=== PATIENT | female | born 1950 | race Caucasian/White ===

== ENCOUNTER 2020-02-26 19:23 | Emergency (ER) | payer MEDICARE ==
[2020-02-26] MEDS ORDERED: MORPHINE SULFATE 4 MG/ML SYRINGE IV STA (19:36)
[2020-02-26] MEDS ORDERED: SODIUM CHLORIDE 0.9% 1,000 ML IV STA (19:36)
--- NOTE | 2020-02-26 19:38 | ED ---
Abdominal Pain HPI - General Stated Complaint: Sent by PCP - Kidney Stones Time Seen by Provider: 02/26/20 19:35 Source: RN notes reviewed, old records reviewed Limitations: no limitations - History of Present Illness Initial Comments: This is a 69-year-old female DF for evaluation patient with flank pain today severe flank pain blood in the urine. Patient sent DF for evaluation of significant kidney stone. Otherwise no recent travel history or sick contacts MD Complaint: abdominal pain, flank pain ((Left) Location: LLQ, L flank Radiation: L flank Migration to: suprapubic Severity: severe Severity scale (1-10): 10 Quality: aching, sharp Consistency: constant Improves With: nothing Worsens With: nothing Associated Symptoms: nausea - Related Data Home Medications Medication Instructions Recorded Confirmed Acetaminophen Tab [Tylenol] 500 mg PO HS 02/26/20 02/26/20 Allergies Allergy/AdvReac Type Severity Reaction Status Date / Time No Known Allergies Allergy Verified 02/26/20 19:46 Review of Systems ROS Statement: Those systems with pertinent positive or pertinent negative responses have been documented in the HPI. ROS Other: All systems not noted in ROS Statement are negative. General Exam General appearance: alert, in no apparent distress Head exam: Present: atraumatic, normocephalic, normal inspection Eye exam: Present: normal appearance, PERRL, EOMI. Absent: scleral icterus, conjunctival injection, periorbital swelling ENT exam: Present: normal exam, mucous membranes moist Neck exam: Present: normal inspection. Absent: tenderness, meningismus, lymphadenopathy Respiratory exam: Present: normal lung sounds bilaterally. Absent: respiratory distress, wheezes, rales, rhonchi, stridor Cardiovascular Exam: Present: regular rate, normal rhythm, normal heart sounds. Absent: systolic murmur, diastolic murmur, rubs, gallop, clicks GI/Abdominal exam: Present: soft, normal bowel sounds. Absent: distended, tenderness, guarding, rebound, rigid Extremities exam: Present: normal inspection, full ROM, normal capillary refill. Absent: tenderness, pedal edema, joint swelling, calf tenderness Back exam: Present: normal inspection Neurological exam: Present: alert, oriented X3, CN II-XII intact Psychiatric exam: Present: normal affect, normal mood Skin exam: Present: warm, dry, intact, normal color. Absent: rash Course Vital Signs 02/26/20 19:36 Temperature 98.5 F Pulse Rate 85 Respiratory 19 Rate Blood Pressure 214/105 O2 Sat by Pulse 96 Oximetry - Reevaluation(s) Reevaluation #1: 02/26/20 20:50 Medical record is reviewed Reevaluation #2: 02/26/20 20:50 Patient has adequate current pain control Reevaluation #3: 02/26/20 20:50 Spoke with patient regarding findings need to follow up with urology Medical Decision Making - Medical Decision Making 69 female DF for evaluation patient Dese for evaluation of abdominal pain with kidney stone. 9 mm kidney stone but now patient has good pain control follow-up with urology on Saturday - Lab Data Result diagrams: 02/26/20 20:09 02/26/20 20:09 Lab Results 02/26/20 02/26/20 Range/Units 20: 20:09 WBC 11.7 H (3.8-10.6) k/uL RBC 4.91 (3.80-5.40) m/uL Hgb 14.1 (11.4-16.0) gm/dL Hct 42.4 (34.0-46.0) % MCV 86.2 (80.0-100.0) fL MCH 28.6 (25.0-35.0) pg MCHC 33.2 (31.0-37.0) g/dL RDW 12.6 (11.5-15.5) % Plt Count 236 (150-450) k/uL Neutrophils % 83 % Lymphocytes % 13 % Monocytes % 3 % Eosinophils % 1 % Basophils % 0 % Neutrophils # 9.6 H (1.3-7.7) k/uL Lymphocytes # 1.5 (1.0-4.8) k/uL Monocytes # 0.4 (0-1.0) k/uL Eosinophils # 0.1 (0-0.7) k/uL Basophils # 0.0 (0-0.2) k/uL Sodium 140 (137-145) mmol/L Potassium 4.3 (3.5-5.1) mmol/L Chloride 106 (98-107) mmol/L Carbon Dioxide 25 (22-30) mmol/L Anion Gap 9 mmol/L BUN 17 (7-17) mg/dL Creatinine 0.91 (0.52-1.04) mg/dL Est GFR (CKD-EPI)AfAm 73 (>60 ml/min/1.73 sqM) Est GFR (CKD-EPI)NonAf 64 (>60 ml/min/1.73 sqM) Glucose 175 H (74-99) mg/dL Calcium 9.9 (8.4-10.2) mg/dL Total Bilirubin 0.6 (0.2-1.3) mg/dL AST 24 (14-36) U/L ALT 20 (4-34) U/L Alkaline Phosphatase 93 (38-126) U/L Creatine Kinase 74 (30-135) U/L Total Protein 7.2 (6.3-8.2) g/dL Albumin 4.6 (3.5-5.0) g/dL Amylase 50 (30-110) U/L Lipase 43 (23-300) U/L - Radiology Data Radiology results: report reviewed (CT head and pelvis positive for kidney stone), image reviewed Disposition Clinical Impression: Left ureteral stone Disposition: HOME SELF-CARE Condition: Good Instructions (If sedation given, give patient instructions): Kidney Stones (ED) Is patient prescribed a controlled substance at d/c from ED?: No Referrals: Tae Gastelum MD [STAFF PHYSICIAN] - 1-2 days
[2020-02-26 19:46] VITALS: PULSE 85
[2020-02-26 20:21] LABS: Basophils % (A) 0 %; Eosinophils # (A) 0.1 k/uL (0-0.7); Eosinophils % (A) 1 %; HCT 42.4 % (34.0-46.0); HGB 14.1 gm/dL (11.4-16.0); Lymphocytes # (A) 1.5 k/uL (1.0-4.8); Lymphocytes % (A) 13 %; MCH 28.6 pg (25.0-35.0); MCHC 33.2 g/dL (31.0-37.0); MCV 86.2 fL (80.0-100.0); Mean Platelet Volume 8.3; Monocytes # (A) 0.4 k/uL (0-1.0); Monocytes % (A) 3 %; Neutrophils # (A) 9.6 k/uL (1.3-7.7); Neutrophils % (A) 83 %; Platelet Count 236 k/uL (150-450); RBC 4.91 m/uL (3.80-5.40); RDW 12.6 % (11.5-15.5); WBC 11.7 k/uL (3.8-10.6)
[2020-02-26 20:25] LABS: Albumin 4.6 g/dL (3.5-5.0); Calcium 9.9 mg/dL (8.4-10.2); Potassium 4.3 mmol/L (3.5-5.1); Total Bilirubin 0.6 mg/dL (0.2-1.3); Total Protein 7.2 g/dL (6.3-8.2)
--- NOTE | 2020-02-26 20:32 | CT ---
EXAMINATION TYPE: CT abdomen pelvis wo con DATE OF EXAM: 02/26/2020 COMPARISON: None HISTORY: Pt sent from Urgent Care for renal stones. LT side pain CT DLP: 805.2 mGycm Automated exposure control for dose reduction was used. Images obtained from the diaphragm to the floor the pelvis with no contrast. There is some mild atelectasis at the lung bases. There is no pleural effusion. Heart is borderline e nlarged. There is no pericardial effusion. Liver gallbladder pancreas spleen stomach appear intact. The bile ducts are not dilated. There is no adrenal mass. Kidneys have normal size. There is left-sided hydronephrosis with 9 mm obst ructing calculus at the left proximal ureter. There is no retroperitoneal adenopathy. There is no sig n of obstruction on the right side. There is slight fullness of the right renal calyces that could re late to previous episode of obstruction. Bladder distends smoothly. Uterus is anteverted. There is left inguinal hernia that contains fat. The re is no free fluid in the pelvis. Lumbar vertebra have normal alignment. Disc spaces are fairly norm al. There is no compression fracture. The bony pelvis is intact. The hip joints are intact. There is bilateral hypertrophic acetabular spur formation. The appendix is posterior and lateral and appears normal. There is no mesenteric edema. There is no a scites or free air. There is no bowel obstruction. There are a few isolated colonic diverticula. IMPRESSION: Large obstructing calculus in the proximal left ureter. Left-sided hydronephrosis. Normal appendix.
[2020-02-26] MEDS ORDERED: IBUPROFEN 600 MG STARTER PACK 4 TAB BTL PO STA (20:48)
[2020-02-26] MEDS ORDERED: Acetaminophen-Codeine 300-30mg TAB PO STA (20:48)
[2020-02-26] MEDS ORDERED: ONDANSETRON ODT 4 MG TAB PO STA (20:48)
[2020-02-26] MEDS ORDERED: ACET/COD 300 MG/30 MG STARTER PACK 6 TAB BTL PO STA (20:48)
[2020-02-26] MEDS ORDERED: ONDANSETRON 4 MG ODT STARTER PACK 2 TAB BTL PO STA (20:48)
[2020-02-26] MEDS ORDERED: MORPHINE SULFATE 4 MG/ML SYRINGE IVP PRN (20:48)
[2020-02-26] MEDS ORDERED: KETOROLAC 15 MG/ML 1 ML VIAL IVP STA (20:48)
[2020-02-26 21:10] LABS: Amorphous Sediment,Urine Rare /hpf; Appearance,Urine Cloudy (Clear); Bacteria,Urine Occasional /hpf; Bilirubin,Urine Negative (Negative); Blood,Urine Small (Negative); Color,Urine Yellow; Glucose,Urine (UA) Trace (Negative); Hyaline Casts,Urine 169 /lpf (0-2); Ketones,Urine Trace (Negative); Leukocyte Esterase,Urine Negative (Negative); Mucus,Urine Many /hpf; Nitrite,Urine Negative (Negative); Protein,Urine 1+ (Negative); RBC,Urine 5 /hpf (0-5); Specific Gravity,Urine 1.026 (1.001-1.035); Squamous Epithelial Cell,Urine 2 /hpf (0-4); WBC,Urine 3 /hpf (0-5)
[2020-02-26 21:17] VITALS: BP 161/82; RESP 18; TEMP 98.4
== END 2020-02-26 21:16 | disposition home or self-care (01) ==
LOC: EC 19:23
DX: N20.2 Calculus of kidney with calculus of ureter (principal); Z79.899 Other long term (current) drug therapy
CPT/HCPCS: 36415; 80053; 82150; 82550; 83690; 85025; 81001; 74176; 99285; 96374; 96375; 96361; J2270; J1885; S0119

== ENCOUNTER 2020-03-09 18:30 | Inpatient (IN) | payer MEDICARE ==
[2020-03-09 18:37] LABS: Glucose,Whole Blood 365 mg/dL (75-99)
[2020-03-09 19:30] LABS: Basophils % (A) 0 %; Eosinophils # (A) 0.1 k/uL (0-0.7); Eosinophils % (A) 1 %; HCT 38.7 % (34.0-46.0); HGB 12.6 gm/dL (11.4-16.0); Lymphocytes # (A) 1.1 k/uL (1.0-4.8); Lymphocytes % (A) 8 %; MCH 28.4 pg (25.0-35.0); MCHC 32.5 g/dL (31.0-37.0); MCV 87.4 fL (80.0-100.0); Mean Platelet Volume 9.1; Monocytes # (A) 0.5 k/uL (0-1.0); Monocytes % (A) 3 %; Neutrophils # (A) 12.4 k/uL (1.3-7.7); Neutrophils % (A) 88 %; RBC 4.42 m/uL (3.80-5.40); RDW 13.4 % (11.5-15.5); WBC 14.2 k/uL (3.8-10.6)
[2020-03-09 19:39] LABS: Albumin 4.2 g/dL (3.5-5.0); Calcium 9.2 mg/dL (8.4-10.2); Magnesium 1.9 mg/dL (1.6-2.3); Platelet Count 115 k/uL (150-450); Potassium 4.1 mmol/L (3.5-5.1); Total Bilirubin 1.1 mg/dL (0.2-1.3); Total Protein 6.8 g/dL (6.3-8.2)
[2020-03-09 19:46] LABS: Appearance,Urine Cloudy (Clear); Bacteria,Urine Occasional /hpf; Bilirubin,Urine 1+ (Negative); Blood,Urine Large (Negative); Color,Urine Yellow; Glucose,Urine (UA) 4+ (Negative); Hyaline Casts,Urine 14 /lpf (0-2); INR 1.2 (<1.2); Ketones,Urine 1+ (Negative); Leukocyte Esterase,Urine Trace (Negative); Mucus,Urine Rare /hpf; Nitrite,Urine Negative (Negative); Protein,Urine 1+ (Negative); Prothrombin Time 12.2 sec (9.0-12.0); RBC,Urine 28 /hpf (0-5); Specific Gravity,Urine 1.025 (1.001-1.035); Squamous Epithelial Cell,Urine 23 /hpf (0-4); Urobilinogen,Urine <2.0 mg/dL (<2.0); WBC,Urine 9 /hpf (0-5)
[2020-03-09 19:47] LABS: Partial Thromboplastin Time 21.3 sec (22.0-30.0)
--- NOTE | 2020-03-09 20:48 | XR ---
EXAMINATION TYPE: XR chest 2V DATE OF EXAM: 03/09/2020 COMPARISON: NONE HISTORY: Shortness of breath. TECHNIQUE: Frontal and lateral views of the chest are obtained. FINDINGS: There is mild bibasilar atelectasis. No significant infiltrate pleural effusion, or pneumo thorax seen. The cardiac silhouette size is within normal limits. The osseous structures are intac t. IMPRESSION: No acute cardiopulmonary process.
[2020-03-09] MEDS ORDERED: SODIUM CHLORIDE 0.9% 1,000 ML IV ONE (20:59)
[2020-03-09] MEDS ORDERED: cefTRIAXone IN SWFI 1,000 MG/10 ML SYRINGE IVP STA (20:59)
--- NOTE | 2020-03-09 21:07 | CT ---
EXAMINATION TYPE: CT brain cspine wo con DATE OF EXAM: 03/09/2020 COMPARISON: None available. HISTORY: recent fall and surgery CT DLP: 2282 mGycm Automated exposure control for dose reduction was used. TECHNIQUE: CT scan of the head and cervical spine are performed without contrast. FINDINGS: There is no acute intracranial hemorrhage, mass effect, or midline shift identified. The ventricles and sulci are within normal limits in size. The globes are intact and the visualized sin uses are clear. Cervical spine is visualized in its entirety from C1 through upper thoracic levels and demonstrates s atisfactory alignment without evidence of acute fracture or dislocation. Prevertebral soft tissue ap pears within normal limits. The C1-C2 articulation is unremarkable. There is moderate to severe cer vical spondylosis. IMPRESSION: 1. There is no acute fracture or dislocation evident in the cervical spine. 2. No acute intracranial hemorrhage, mass effect, or midline shift is seen.
[2020-03-09] MEDS: SODIUM CHLORIDE 0.9% 1,000 ML IV SCH (21:25)
--- NOTE | 2020-03-09 21:41 | ED ---
General Adult HPI - General Chief complaint: Recheck/Abnormal Lab/Rx Stated complaint: elevated blood sugar Source: patient Mode of arrival: wheelchair Limitations: no limitations - History of Present Illness Initial comments: The patient is a 69 year old female who presents to the emergency department for generalized weakness, hyperglycemia and nausea. Patient reports that she had outpatient surgery by Dr. Lua on Saturday. She had a 9 mm obstructing left proximal ureter stone which was removed. Patient was discharged home on Saturday after her procedure. States that she was so weak that she sustained a fall. She fell hit her head and was unconscious for approximately 5 minutes. States that throughout the week she has been nauseated, vomiting and in pain. She has left-sided flank pain. Admits to extreme fatigue. She has been unable to eat or drink. She has not taken any of her insulin as she has been unable to hold down any of her foods and has not been eating. She denies any chest pain. No shortness of breath. No changes in her bowel habits. Does admit that her urine has been cloudy. No other alleviating, precipitating or modifying factors - Related Data Home Medications Medication Instructions Recorded Confirmed Acetaminophen Tab [Tylenol] 1,000 mg PO Q6H PRN 02/26/20 03/09/20 Atorvastatin Calcium [Lipitor] 10 mg PO HS 03/09/20 03/09/20 Omeprazole 20 mg PO DAILY 03/09/20 03/09/20 glipiZIDE [Glucotrol] 10 mg PO AC-SUPPER 03/09/20 03/09/20 glipiZIDE [Glucotrol] 20 mg PO AC-BRKFST 03/09/20 03/09/20 metFORMIN HCL [Glucophage Xr] 1,500 mg PO W/SUPPER 03/09/20 03/09/20 sitaGLIPtin [Januvia] 25 mg PO DAILY 03/09/20 03/09/20 Allergies Allergy/AdvReac Type Severity Reaction Status Date / Time No Known Allergies Allergy Verified 03/09/20 20:03 Review of Systems ROS Statement: Those systems with pertinent positive or pertinent negative responses have been documented in the HPI. ROS Other: All systems not noted in ROS Statement are negative. Past Medical History Past Medical History: Diabetes Mellitus, Hypertension Additional Past Medical History / Comment(s): Type 2 diabetic History of Any Multi-Drug Resistant Organisms: None Reported Past Surgical History: Tubal Ligation Past Psychological History: No Psychological Hx Reported Smoking Status: Never smoker Past Alcohol Use History: None Reported Past Drug Use History: None Reported General Exam Limitations: no limitations General appearance: alert, other (appears fatigued) Eye exam: Present: normal appearance, PERRL, EOMI. Absent: scleral icterus, conjunctival injection, periorbital swelling ENT exam: Present: mucous membranes dry Respiratory exam: Present: normal lung sounds bilaterally. Absent: respiratory distress, wheezes, rales, rhonchi, stridor Cardiovascular Exam: Present: regular rate, normal rhythm, normal heart sounds. Absent: systolic murmur, diastolic murmur, rubs, gallop, clicks GI/Abdominal exam: Present: soft. Absent: guarding, rebound, rigid Back exam: Present: CVA tenderness (L) Neurological exam: Present: alert, oriented X3 Skin exam: Present: warm, pallor Course Vital Signs 03/09/20 03/09/20 03/09/20 18:32 20:30 21:00 Temperature 97.8 F Pulse Rate 87 84 84 Respiratory 16 16 16 Rate Blood Pressure 132/74 134/79 134/79 O2 Sat by Pulse 95 93 L 91 L Oximetry 03/09/20 03/09/20 03/09/20 21:30 22:00 22:30 Temperature Pulse Rate 85 85 85 Respiratory 20 20 Rate Blood Pressure 144/88 135/82 148/89 O2 Sat by Pulse 91 L 92 L 92 L Oximetry 03/09/20 23:00 Temperature Pulse Rate 87 Respiratory Rate Blood Pressure 147/91 O2 Sat by Pulse 91 L Oximetry EKG Findings - EKG Comments: EKG Findings:: EKG demonstrates sinus rhythm with PACs. Rate 100. GA interval 124. QRS is 78. QTC of 497. No acute ST segment elevations or depressions Medical Decision Making - Lab Data Result diagrams: 03/10/20 12:28 03/10/20 06:50 Lab Results 03/09/20 03/09/20 03/09/20 Range/Units 18:35 19:13 19:13 WBC 14.2 H (3.8-10.6) k/uL RBC 4.42 (3.80-5.40) m/uL Hgb 12.6 (11.4-16.0) gm/dL Hct 38.7 (34.0-46.0) % MCV 87.4 (80.0-100.0) fL MCH 28.4 (25.0-35.0) pg MCHC 32.5 (31.0-37.0) g/dL RDW 13.4 (11.5-15.5) % Plt Count 115 L D (150-450) k/uL Neutrophils % 88 % Lymphocytes % 8 % Monocytes % 3 % Eosinophils % 1 % Basophils % 0 % Neutrophils # 12.4 H (1.3-7.7) k/uL Lymphocytes # 1.1 (1.0-4.8) k/uL Monocytes # 0.5 (0-1.0) k/uL Eosinophils # 0.1 (0-0.7) k/uL Basophils # 0.0 (0-0.2) k/uL PT 12.2 H (9.0-12.0) sec INR 1.2 H (<1.2) APTT 21.3 L (22.0-30.0) sec Sodium (137-145) mmol/L Potassium (3.5-5.1) mmol/L Chloride (98-107) mmol/L Carbon Dioxide (22-30) mmol/L Anion Gap mmol/L BUN (7-17) mg/dL Creatinine (0.52-1.04) mg/dL Est GFR (CKD-EPI)AfAm (>60 ml/min/1.73 sqM) Est GFR (CKD-EPI)NonAf (>60 ml/min/1.73 sqM) Glucose (74-99) mg/dL POC Glucose (mg/dL) 365 H (75-99) mg/dL POC Glu [employer] Director ID [place], Rasheeda Lactic Ac Sepsis Rflx Plasma Lactic Acid Kam (0.7-2.0) mmol/L Calcium (8.4-10.2) mg/dL Magnesium (1.6-2.3) mg/dL Total Bilirubin (0.2-1.3) mg/dL AST (14-36) U/L ALT (4-34) U/L Alkaline Phosphatase (38-126) U/L Troponin I (0.000-0.034) ng/mL NT-Pro-B Natriuret Pep pg/mL Total Protein (6.3-8.2) g/dL Albumin (3.5-5.0) g/dL Urine Color Urine Appearance (Clear) Urine pH (5.0-8.0) Ur Specific [place] (1.001-1.035) Urine Protein (Negative) Urine Glucose (UA) (Negative) Urine Ketones (Negative) Urine Blood (Negative) Urine Nitrite (Negative) Urine Bilirubin (Negative) Urine Urobilinogen (<2.0) mg/dL Ur Leukocyte Esterase (Negative) Urine RBC (0-5) /hpf Urine WBC (0-5) /hpf Ur Squamous Epith Cells (0-4) /hpf Urine Bacteria (None) /hpf Hyaline Casts (0-2) /lpf Urine Mucus (None) /hpf 03/09/20 03/09/20 03/09/20 Range/Units 19:13 19:13 19:13 WBC (3.8-10.6) k/uL RBC (3.80-5.40) m/uL Hgb (11.4-16.0) gm/dL Hct (34.0-46.0) % MCV (80.0-100.0) fL MCH (25.0-35.0) pg MCHC (31.0-37.0) g/dL RDW (11.5-15.5) % Plt Count (150-450) k/uL Neutrophils % % Lymphocytes % % Monocytes % % Eosinophils % % Basophils % % Neutrophils # (1.3-7.7) k/uL Lymphocytes # (1.0-4.8) k/uL Monocytes # (0-1.0) k/uL Eosinophils # (0-0.7) k/uL Basophils # (0-0.2) k/uL PT (9.0-12.0) sec INR (<1.2) APTT (22.0-30.0) sec Sodium 131 L (137-145) mmol/L Potassium 4.1 (3.5-5.1) mmol/L Chloride 94 L (98-107) mmol/L Carbon Dioxide 24 (22-30) mmol/L Anion Gap 13 mmol/L BUN 42 H (7-17) mg/dL Creatinine 2.55 H (0.52-1.04) mg/dL Est GFR (CKD-EPI)AfAm 21 (>60 ml/min/1.73 sqM) Est GFR (CKD-EPI)NonAf 18 (>60 ml/min/1.73 sqM) Glucose 378 H (74-99) mg/dL POC Glucose (mg/dL) (75-99) mg/dL POC Glu [employer] Director ID Lactic Ac Sepsis Rflx Plasma Lactic Acid Kam 2.9 H* (0.7-2.0) mmol/L Calcium 9.2 (8.4-10.2) mg/dL Magnesium 1.9 (1.6-2.3) mg/dL Total Bilirubin 1.1 (0.2-1.3) mg/dL AST 1620 H (14-36) U/L ALT 2095 H (4-34) U/L Alkaline Phosphatase 127 H (38-126) U/L Troponin I (0.000-0.034) ng/mL NT-Pro-B Natriuret Pep pg/mL Total Protein 6.8 (6.3-8.2) g/dL Albumin 4.2 (3.5-5.0) g/dL Urine Color Yellow Urine Appearance Cloudy H (Clear) Urine pH 5.0 (5.0-8.0) Ur Specific [place] 1.025 (1.001-1.035) Urine Protein 1+ H (Negative) Urine Glucose (UA) 4+ H (Negative) Urine Ketones 1+ H (Negative) Urine Blood Large H (Negative) Urine Nitrite Negative (Negative) Urine Bilirubin 1+ H (Negative) Urine Urobilinogen <2.0 (<2.0) mg/dL Ur Leukocyte Esterase Trace H (Negative) Urine RBC 28 H (0-5) /hpf Urine WBC 9 H (0-5) /hpf Ur Squamous Epith Cells 23 H (0-4) /hpf Urine Bacteria Occasional H (None) /hpf Hyaline Casts 14 H (0-2) /lpf Urine Mucus Rare H (None) /hpf 03/09/20 03/09/20 03/09/20 Range/Units 19:13 19:13 19:53 WBC (3.8-10.6) k/uL RBC (3.80-5.40) m/uL Hgb (11.4-16.0) gm/dL Hct (34.0-46.0) % MCV (80.0-100.0) fL MCH (25.0-35.0) pg MCHC (31.0-37.0) g/dL RDW (11.5-15.5) % Plt Count (150-450) k/uL Neutrophils % % Lymphocytes % % Monocytes % % Eosinophils % % Basophils % % Neutrophils # (1.3-7.7) k/uL Lymphocytes # (1.0-4.8) k/uL Monocytes # (0-1.0) k/uL Eosinophils # (0-0.7) k/uL Basophils # (0-0.2) k/uL PT (9.0-12.0) sec INR (<1.2) APTT (22.0-30.0) sec Sodium (137-145) mmol/L Potassium (3.5-5.1) mmol/L Chloride (98-107) mmol/L Carbon Dioxide (22-30) mmol/L Anion Gap mmol/L BUN (7-17) mg/dL Creatinine (0.52-1.04) mg/dL Est GFR (CKD-EPI)AfAm (>60 ml/min/1.73 sqM) Est GFR (CKD-EPI)NonAf (>60 ml/min/1.73 sqM) Glucose (74-99) mg/dL POC Glucose (mg/dL) (75-99) mg/dL POC Glu [employer] Director ID Lactic Ac Sepsis Rflx Y Plasma Lactic Acid Kam (0.7-2.0) mmol/L Calcium (8.4-10.2) mg/dL Magnesium (1.6-2.3) mg/dL Total Bilirubin (0.2-1.3) mg/dL AST (14-36) U/L ALT (4-34) U/L Alkaline Phosphatase (38-126) U/L Troponin I 1.300 H* (0.000-0.034) ng/mL NT-Pro-B Natriuret Pep 02697 pg/mL Total Protein (6.3-8.2) g/dL Albumin (3.5-5.0) g/dL Urine Color Urine Appearance (Clear) Urine pH (5.0-8.0) Ur Specific [place] (1.001-1.035) Urine Protein (Negative) Urine Glucose (UA) (Negative) Urine Ketones (Negative) Urine Blood (Negative) Urine Nitrite (Negative) Urine Bilirubin (Negative) Urine Urobilinogen (<2.0) mg/dL Ur Leukocyte Esterase (Negative) Urine RBC (0-5) /hpf Urine WBC (0-5) /hpf Ur Squamous Epith Cells (0-4) /hpf Urine Bacteria (None) /hpf Hyaline Casts (0-2) /lpf Urine Mucus (None) /hpf Critical Care Time Critical Care Time: 35 minutes for heparinization of patient Disposition Clinical Impression: Transaminitis, Hyperglycemia, MERCEDES (acute kidney injury), NSTEMI (non-ST elevated myocardial infarction), Lactic acidosis, Nausea and vomiting, Leukocytosis Disposition: ADMITTED IP TO THIS [facility] Condition: Serious Is patient prescribed a controlled substance at d/c from ED?: No Decision to Admit Reason: Admit from EC Decision Date: 03/09/20 Decision Time: 21:47
[2020-03-09] MEDS ORDERED: ONDANSETRON 4 MG/2 ML VIAL IVP PRN (21:49)
[2020-03-09] MEDS ORDERED: NALOXONE 0.4 MG/ML 1 ML VIAL IV PRN (21:49)
[2020-03-09] MEDS ORDERED: ONDANSETRON 4 MG/2 ML VIAL IVP STA (21:51)
--- NOTE | 2020-03-09 22:17 | CT ---
EXAMINATION TYPE: CT ChestAbdPelvis wo con DATE OF EXAM: 03/09/2020 COMPARISON: 02/26/2020. HISTORY: recent fall and surgery CT DLP: 2282 mGycm. Automated Exposure Control for Dose Reduction was Utilized. TECHNIQUE: CT scan of the thorax, abdomen and pelvis is performed without IV contrast. FINDINGS: LUNGS: Small to moderate right lower lobe patchy opacities. No significant pleural effusion or pneumo thorax. MEDIASTINUM: There are no greater than 1 cm hilar or mediastinal lymph nodes. No pericardial effusi on is seen. OTHER: No additional significant abnormality is seen. LIVER/GB: Hepatic steatosis without significant abnormality. PANCREAS: No significant abnormality is seen. SPLEEN: No significant abnormality is seen. ADRENALS: No significant abnormality is seen. KIDNEYS: Persistent moderate left hydroureteronephrosis without obstructing calculus seen. No right h ydronephrosis or nephrolithiasis. BOWEL: No significant abnormality is seen. GENITAL ORGANS: No gross abnormality seen. LYMPH NODES: No greater than 1cm abdominal or pelvic lymph nodes are appreciated. OSSEOUS STRUCTURES: No significant abnormality is seen. OTHER: No significant additional abnormality is seen. IMPRESSION: Interval resolution of previous obstructing left ureteral calculus. However there is persistent moder ate hydroureteronephrosis without knee obstructing calculus seen. Small to moderate right basilar airspace opacity, correlate for atelectasis versus infiltrate.
[2020-03-09] MEDS ORDERED: HEPARIN SODIUM,PORCINE 5,000 UNIT/ML 1 ML VIAL IV ONE (22:23)
[2020-03-09] MEDS ORDERED: HEPARIN SODIUM,PORCINE 5,000 UNIT/ML 1 ML VIAL IV PRN (22:23)
[2020-03-09] MEDS ORDERED: HEPARIN SOD,PORK IN 0.45% NACL 25,000 UNIT in 0.45% NACL 1 250ML.BAG IV SCH (22:30)
[2020-03-09] MEDS ORDERED: ATORVASTATIN 10 MG TAB PO SCH (23:30)
[2020-03-09] MEDS ORDERED: MORPHINE SULFATE 2 MG/ML SYRINGE IVP PRN (23:56)
--- NOTE | 2020-03-10 00:17 | HP ---
HISTORY AND PHYSICAL A 69-year-old female came to the ER for generalized weakness, hyperglycemia, and nausea. She was seen by Dr. Lua on Saturday, had a 9 mm obstructing left ureteral stone removed. She was discharged home after procedure. She became so weak in severe pain, she fell and hit her head and she has had severe pain, nausea and vomiting and left-sided flank pain since then. CAT scan shows moderate hydronephrosis still. She has not been able to eat or drink. Her sugars are super high. She is severely dehydrated with acute tubular necrosis, acute renal injury, admitted for IV fluids. She has elevated BNP, elevated troponin and an elevated renal functions. I am not sure if she is having a non STEMI or not. Cardiology is consulted. She has been heparinized. MEDICATIONS: Home medicines include: 1. Lipitor 10 mg daily. 2. Omeprazole 20 daily. 3. Glucotrol 20 for breakfast, 10 at night. CARDIOVASCULAR: S1, S2. LUNGS: Are clear. GI: Tenderness to palpation left lower quadrant, left flank. HEMATOLOGY: Negative Homans. ASSESSMENT: 1. Transaminitis with liver functions in 1000, 2000. 2. BNP is 10,400. Suspect possibly congestive heart failure with possible non ST- elevation myocardial infarction with elevated transaminitis secondary to congestive heart failure. 3. Hyperglycemia. 4. Lactic acidosis. 5. Nausea, vomiting. 6. Possible urinary tract infection with abnormal UA. IV antibiotics were given. Continued consultation with GI for elevated transaminases, Cardiology and Urology. Prognosis guarded. Rehydrate her overnight. Hopefully improvement of the renal function in the morning for prerenal renal failure. Head CT is negative. Chest, abdomen, pelvis CT reviewed. MMODL / IJN: [id number] /
[2020-03-10] MEDS: SODIUM CHLORIDE 0.9% 1,000 ML IV SCH ×2 (05:59→14:50)
[2020-03-10 06:21] LABS: Glucose,Whole Blood 274 mg/dL (75-99)
[2020-03-10] MEDS: INSULIN ASPART (NovoLOG) 100 UNIT/ML VIAL SQ SCH ×3 (06:43→13:53)
[2020-03-10] MEDS ORDERED: PANTOPRAZOLE 40 MG TABLET PO SCH (07:30)
[2020-03-10 07:36] LABS: Basophils % (A) 0 %; Eosinophils % (A) 0 %; HGB 11.9 gm/dL (11.4-16.0); Lymphocytes # (A) 1.1 k/uL (1.0-4.8); Lymphocytes % (A) 8 %; MCHC 33.1 g/dL (31.0-37.0); MCV 87.5 fL (80.0-100.0); Mean Platelet Volume 8.7; Monocytes # (A) 0.6 k/uL (0-1.0); Monocytes % (A) 4 %; Neutrophils # (A) 11.7 k/uL (1.3-7.7); Neutrophils % (A) 87 %; RBC 4.12 m/uL (3.80-5.40); RDW 13.3 % (11.5-15.5); WBC 13.5 k/uL (3.8-10.6)
[2020-03-10 07:37] LABS: Albumin 3.4 g/dL (3.5-5.0); Calcium 8.3 mg/dL (8.4-10.2); Potassium 3.6 mmol/L (3.5-5.1); Total Bilirubin 0.9 mg/dL (0.2-1.3); Total Protein 5.7 g/dL (6.3-8.2)
[2020-03-10 07:45] LABS: INR 1.3 (<1.2); Partial Thromboplastin Time 32.3 sec (22.0-30.0); Prothrombin Time 12.8 sec (9.0-12.0)
[2020-03-10] MEDS ORDERED: HEPARIN SODIUM,PORCINE 5,000 UNIT/ML 1 ML VIAL IV STA ×2 (08:12→14:35)
[2020-03-10 08:23] LABS: Poikilocytosis (M) Present
[2020-03-10 08:24] LABS: Platelet Count 96 k/uL (150-450)
[2020-03-10] MEDS ORDERED: ASPIRIN 81 MG PO SCH (10:00)
[2020-03-10] MEDS ORDERED: METOPROLOL TARTRATE 25 MG TAB PO SCH (10:00)
[2020-03-10] MEDS ORDERED: FUROSEMIDE 10 MG/ML 4 ML VIAL IV SCH (10:15)
--- NOTE | 2020-03-10 11:20 | P.CRDCN ---
History of Present Illness History of present illness: HISTORY OF PRESENTING ILLNESS This is a pleasant 69-year-old occasion female past medical history significant for diabetes mellitus, hypertension, dyslipidemia and recent cystoscopy secondar y to a left kidney stone. She denies prior history of coronary artery disease and does not follow with a computer systems software engineer for any reason. We have been asked to see in consultation for elevated troponin. She states on Saturday she went to [facility] for outpatient cystoscopy secondary to a left kidney stone with Dr. Joseph. After going home on Saturday night she had multiple episodes of feeling dizzy, lightheaded and short of breath. These episodes were persistent and actually caused her to pass out on 2 separate occasions. She intermittently had discomfort in the left flank region that radiated at times to the left precordial region described as a sharp pain. DIAGNOSTICS EKG reveals sinus mechanism with PACs, right axis deviation and nonspecific ST abnormalities. CT of the chest, abdomen and pelvis reveals left hydronephrosis with no obstructing calculus. Lungs have a small to moderate right lower lobe patchy opacity. Laboratory reviewed, WBC 13.5, hemoglobin 11.9, platelets 96, INR 1.3, sodium 133, potassium 3.6, creatinine 1.84, lactic acid 2.1 on admission and repeat today 1.7, AST 1258, ALT 1852, initial troponin was 1. 3 repeat 0.706. Current cardiac medications include atorvastatin 10 mg daily and lisinopril 5 mg daily. REVIEW OF SYSTEMS At the time of my exam: CONSTITUTIONAL: Denies fever or chills. CARDIOVASCULAR: Denies chest pain, shortness of breath, orthopnea, PND or palpitations. RESPIRATORY: Denies cough. GASTROINTESTINAL: Denies abdominal pain, diarrhea, constipation, nausea or vomiting. MUSCULOSKELETAL: Denies myalgias. NEUROLOGIC: Denies numbness, tingling or weakness. ENDOCRINE: Denies fatigue, weight change, polydipsia or polyurina. GENITOURINARY: Denies burning, hematuria or urgency with micturation. HEMATOLOGIC: Denies history of anemia or bleeding. PHYSICAL EXAMINATION Blood pressure 139/74 heart rate 85 afebrile and maintaining oxygen saturation on room air. CONSTITUTIONAL: No apparent distress. HEENT: Head is normocephalic. Pupils are equal, round. Sclerae anicteric. Mucous membranes of the mouth are moist. No JVD. No carotid bruit. CHEST EXAMINATION: Lungs are clear to auscultation. No chest wall tenderness is noted on palpation or with deep breathing. HEART EXAMINATION: Regular rate and rhythm. S1, S2 heard. No murmurs, gallops or rub. ABDOMEN: Soft, nontender. Positive bowel sounds. EXTREMITIES: 2+ peripheral pulses, no lower extremity edema and no calf tenderness. NEUROLOGIC EXAMINATION: Patient is awake, alert and oriented x3. ASSESSMENT Non-ST elevated myocardial infarction Transaminitis Lactic acidosis Acute kidney injury History of left renal stone status post cystoscopy Hypertension Dyslipidemia Diabetes mellitus PLAN Continue heparin infusion for another 24 hours. Initiate aspirin 81 mg daily and metoprolol 25 mg twice a day. Hold statin secondary to elevated liver enzymes. Obtain 2-D echocardiogram and Doppler study to assess cardiac structure and function. Repeat EKG now. Further recommendations to follow based upon clinical course. Thank you kindly for this consultation. Nurse Practitioner note has been reviewed, I agree with a documented findings and plan of care. Patient was seen and examined. Past Medical History Past Medical History: Diabetes Mellitus, Hypertension Additional Past Medical History / Comment(s): Type 2 diabetic History of Any Multi-Drug Resistant Organisms: None Reported Past Surgical History: Tubal Ligation Past Anesthesia/Blood Transfusion Reactions: No Reported Reaction Past Psychological History: No Psychological Hx Reported Smoking Status: Never smoker Past Alcohol Use History: None Reported Past Drug Use History: None Reported Medications and Allergies Home Medications Medication Instructions Recorded Confirmed Type Acetaminophen Tab [Tylenol] 1,000 mg PO Q6H PRN 02/26/20 03/09/20 History Atorvastatin Calcium [Lipitor] 10 mg PO HS 03/09/20 03/09/20 History Omeprazole 20 mg PO DAILY 03/09/20 03/09/20 History glipiZIDE [Glucotrol] 10 mg PO AC-SUPPER 03/09/20 03/09/20 History glipiZIDE [Glucotrol] 20 mg PO AC-BRKFST 03/09/20 03/09/20 History metFORMIN HCL [Glucophage Xr] 1,500 mg PO W/SUPPER 03/09/20 03/09/20 History sitaGLIPtin [Januvia] 25 mg PO DAILY 03/09/20 03/09/20 History Allergies Allergy/AdvReac Type Severity Reaction Status Date / Time No Known Allergies Allergy Verified 03/09/20 20:03 Physical Exam Vitals: Vital Signs Temp Pulse Pulse Resp BP BP Pulse Ox 03/10/20 08:05 98.7 F 85 16 139/74 88 L 03/10/20 04:00 87 18 139/67 90 L 03/10/20 00:00 94 18 03/09/20 23:20 97.8 F 94 18 161/73 92 L 03/09/20 23:00 87 147/91 91 L 03/09/20 22:30 85 148/89 92 L 03/09/20 22:00 85 20 135/82 92 L 03/09/20 21:30 85 20 144/88 91 L 03/09/20 21:00 84 16 134/79 91 L 03/09/20 20:30 84 16 134/79 93 L 03/09/20 18:32 97.8 F 87 16 132/74 95 Intake and Output 03/09/20 03/10/20 03/10/20 22:59 06:59 14:59 Intake Total 87.904 Output Total 0 Balance 0 87.904 Intake: Intake, IV Titration 87.904 Amount Heparin Sod,Pork in 0.45% 87.904 NaCl 25,000 unit In 0.45 % NaCl 1 250ml.bag @ 12 UNITS/KG/HR 9.253 mls/hr IV .Q24H [facility] Rx#: [id number] Oral 0 Output: Urine 0 Other: Voiding Method Toilet Toilet Toilet Weight 77.111 kg 79 kg Results 03/10/20 06:50 03/10/20 06:50 Cardiac Enzymes 03/09/20 03/09/20 03/10/20 Range/Units 19:13 19:13 06:50 AST 1620 H 1258 H (14-36) U/L Troponin I 1.300 H* (0.000-0.034) ng/mL 03/10/20 Range/Units 06:50 AST (14-36) U/L Troponin I 0.706 H* (0.000-0.034) ng/mL Coagulation 03/09/20 03/10/20 Range/Units 19:13 06:50 PT 12.2 H 12.8 H (9.0-12.0) sec APTT 21.3 L 32.3 H (22.0-30.0) sec CBC 03/09/20 03/10/20 Range/Units 19:13 06:50 WBC 14.2 H 13.5 H (3.8-10.6) k/uL RBC 4.42 4.12 (3.80-5.40) m/uL Hgb 12.6 11.9 (11.4-16.0) gm/dL Hct 38.7 36.0 (34.0-46.0) % Plt Count 115 L D 96 L (150-450) k/uL Comprehensive Metabolic Panel 03/09/20 03/10/20 Range/Units 19:13 06:50 Sodium 131 L 133 L (137-145) mmol/L Potassium 4.1 3.6 (3.5-5.1) mmol/L Chloride 94 L 100 (98-107) mmol/L Carbon Dioxide 24 24 (22-30) mmol/L BUN 42 H 39 H (7-17) mg/dL Creatinine 2.55 H 1.84 H (0.52-1.04) mg/dL Glucose 378 H 296 H (74-99) mg/dL Calcium 9.2 8.3 L (8.4-10.2) mg/dL AST 1620 H 1258 H (14-36) U/L ALT 2095 H 1852 H (4-34) U/L Alkaline Phosphatase 127 H 122 (38-126) U/L Total Protein 6.8 5.7 L (6.3-8.2) g/dL Albumin 4.2 3.4 L (3.5-5.0) g/dL Current Medications Generic Name Dose Route Start Last Admin Trade Name Julioq PRN Reason Stop Dose Admin Aspirin 81 mg 03/10/20 10:00 Aspirin 81 Mg PO DAILY [facility] Furosemide 40 mg 03/10/20 10:15 Furosemide 10 Mg/Ml 4 Ml Vial IV 03/11/20 09:01 Q12HR [facility] Heparin Sodium (Porcine) 0 unit 03/09/20 22:23 Heparin Sodium,Porcine 5,000 Unit/Ml 1 Ml Vial IV PER PROTOCOL PRN Low PTT Protocol Sodium Chloride 1,000 mls @ 130 mls/hr 03/09/20 21:00 03/10/20 05:59 Saline 0.9% IV 130 mls/hr .Q7H42M [facility] Administration Heparin Sodium/Sodium Chloride 250 mls @ 9.253 mls/hr 03/09/20 22:30 03/10/20 08:06 25,000 unit/ Sodium Chloride IV 15 units/kg/hr .Q24H [facility] 11.567 mls/hr Titration Protocol 12 UNITS/KG/HR Ceftriaxone Sodium 1 gm/ 50 mls @ 100 mls/hr 03/10/20 09:00 03/10/20 08:12 Sodium Chloride IVPB 100 mls/hr Q24HR [facility] Administration Insulin Aspart 0 unit 03/10/20 07:30 03/10/20 06:43 Insulin Aspart (Novolog) 100 Unit/Ml Vial SQ 4 unit ACHS [facility] Administration Protocol Metoprolol Tartrate 25 mg 03/10/20 10:00 Metoprolol Tartrate 25 Mg Tab PO BID [facility] Morphine Sulfate 2 mg 03/09/20 23:56 03/10/20 06:46 Morphine Sulfate 2 Mg/Ml Syringe IVP 2 mg Q4H PRN Administration Pain/Discomfort Naloxone HCl 0.2 mg 03/09/20 21:49 Naloxone 0.4 Mg/Ml 1 Ml Vial IV Q2M PRN Opioid Reversal Ondansetron HCl 4 mg 03/09/20 21:49 03/10/20 06:46 Ondansetron 4 Mg/2 Ml Vial IVP 4 mg Q8HR PRN Administration Nausea And Vomiting Pantoprazole Sodium 20 mg 03/10/20 07:30 03/10/20 06:44 Pantoprazole 40 Mg Tablet PO 20 mg DAILY@0730 [facility] Administration Intake and Output 03/09/20 03/10/20 03/10/20 22:59 06:59 14:59 Intake Total 87.904 Output Total 0 Balance 0 87.904 Intake: Intake, IV Titration 87.904 Amount Heparin Sod,Pork in 0.45% 87.904 NaCl 25,000 unit In 0.45 % NaCl 1 250ml.bag @ 12 UNITS/KG/HR 9.253 mls/hr IV .Q24H [facility] Rx#: [id number] Oral 0 Output: Urine 0 Other: Voiding Method Toilet Toilet Toilet Weight 77.111 kg 79 kg 03/10/20 06:50 03/10/20 06:50
--- NOTE | 2020-03-10 11:41 | ECHOF ---
Referral Reason:chf MEASUREMENTS -------- HEIGHT: 165.1 cm WEIGHT: 78.9 kg BP: 139/67 RVIDd: 3.6 cm (< 3.3) IVSd: 1.1 cm (0.6 - 1.1) LVIDd: 3.5 cm (3.9 - 5.3) LVPWd: 1.1 cm (0.6 - 1.1) IVSs: 1.6 cm LVIDs: 2.3 cm LVPWs: 1.5 cm LA Diam: 3.1 cm (2.7 - 3.8) Ao Diam: 3.0 cm (2.0 - 3.7) AV Cusp: 2.2 cm (1.5 - 2.6) MV EXCURSION: 11.236 mm (> 18.000) MV EF SLOPE: 16 mm/s (70 - 150) EPSS: 0.4 cm MV E Jasper: 0.44 m/s MV DecT: 407 ms MV A Jasper: 0.93 m/s MV E/A Ratio: 0.47 RAP: 15.00 mmHg RVSP: 52.29 mmHg FINDINGS -------- Sinus rhythm. This was a technically adequate study. The left ventricular size is normal. There is borderline concentric left ventricular hypertrophy. Overall left ventricular systolic function is normal with, an EF between 60 - 65 %. There is septa l flattening in systole which is consistent with right ventricular pressure overload. The RV is moderately enlarged with moderately reduced RV function. There is RV free wall hypokinesis with apical sparring consistent with Marion's sign. Recommend rule out PE if clinically indicate d. Results relayed to primary cardiology service. The left atrium is normal in size. The right atrium is normal in size. Aneurysmal Interatrial septum. The aortic valve is trileaflet and appears structurally normal. The mitral valve is normal. Eoij-hc-zggbtucy tricuspid regurgitation present. There is moderate pulmonary hypertension. The r ight ventricular systolic pressure, as measured by Doppler, is 52.29mmHg. Trace/mild (physiologic) pulmonic regurgitation. The aortic root size is normal. The inferior vena cava is dilated with no significant inspiratory collapse which is consistent estima charisse right atrial pressure of >15 mmHg. There is no pericardial effusion. CONCLUSIONS -------- 1. The left ventricular size is normal. 2. There is borderline concentric left ventricular hypertrophy. 3. Overall left ventricular systolic function is normal with, an EF between 60 - 65 %. 4. There is septal flattening in systole which is consistent with right ventricular pressure overload . 5. The RV is moderately enlarged with moderately reduced RV function. There is RV free wall hypokine sis with apical sparring consistent with Marion's sign. Recommend rule out PE if clinically indic ated. Results relayed to primary cardiology service. 6. Aneurysmal Interatrial septum. 7. Dxax-[id number] tricuspid regurgitation present. 8. There is moderate pulmonary hypertension. 9. The right ventricular systolic pressure, as measured by Doppler, is 52.29mmHg. 10. Trace/mild (physiologic) pulmonic regurgitation. 11. The inferior vena cava is dilated with no significant inspiratory collapse which is consistent es timated right atrial pressure of >15 mmHg. 12. There is no pericardial effusion. BARGE PILOT: Janeen Boone RDCS
[2020-03-10] MEDS ORDERED: HEPARIN SODIUM,PORCINE 5,000 UNIT/ML 1 ML VIAL IV PRN ×2 (11:51→11:59)
[2020-03-10 11:57] VITALS: BP 142/96; PULSE 121; RESP 18; TEMP 98.2
[2020-03-10] MEDS ORDERED: HEPARIN SODIUM,PORCINE 10,000 UNIT/ML 1 ML VIAL IV ONE (11:59)
[2020-03-10] MEDS ORDERED: HEPARIN SOD,PORK IN 0.45% NACL 25,000 UNIT in 0.45% NACL 1 250ML.BAG IV SCH (12:00)
[2020-03-10 12:07] LABS: Glucose,Whole Blood 260 mg/dL (75-99)
--- NOTE | 2020-03-10 12:07 | US ---
EXAMINATION TYPE: US liver DATE OF EXAM: 03/10/2020 COMPARISON: NONE CLINICAL HISTORY: elevated LFTS. Elevated LFTS EXAM MEASUREMENTS: Liver Length: 22 cm Gallbladder Wall: .3 cm CBD: .6 cm Right Kidney: 10.2 x 5.7 x 4.8 cm Pancreas: Tail obscured by overlying bowel gas Liver: Increased attenuation Gallbladder: No stones seen Evidence for sonographic Garcia's sign: No CBD: wnl Right Kidney: No hydronephrosis or masses seen IMPRESSION: 1. Nonspecific pattern of the liver can be seen with hepatic steatosis or diffuse hepatocellular dise ase such as hepatitis correlate clinically.
[2020-03-10 12:50] LABS: Basophils % (A) 0 %; Eosinophils # (A) 0.1 k/uL (0-0.7); Eosinophils % (A) 0 %; HCT 36.9 % (34.0-46.0); HGB 12.4 gm/dL (11.4-16.0); Lymphocytes % (A) 7 %; MCH 29.4 pg (25.0-35.0); MCHC 33.5 g/dL (31.0-37.0); MCV 87.8 fL (80.0-100.0); Mean Platelet Volume 9.1; Monocytes # (A) 0.5 k/uL (0-1.0); Monocytes % (A) 3 %; Neutrophils % (A) 88 %; RDW 13.1 % (11.5-15.5); WBC 13.6 k/uL (3.8-10.6)
[2020-03-10 12:53] LABS: Platelet Count 92 k/uL (150-450)
[2020-03-10 13:12] LABS: D-Dimer 9.66 mg/L FEU (<0.60); INR 1.2 (<1.2); Partial Thromboplastin Time 42.2 sec (22.0-30.0); Prothrombin Time 12.5 sec (9.0-12.0)
--- NOTE | 2020-03-10 13:48 | NM ---
EXAMINATION TYPE: NM pul vent and perfuse DATE OF EXAM: 03/10/2020 COMPARISON: Chest x-ray 03/09/2020 HISTORY: Difficulty breathing TECHNIQUE: Utilizing inhalation of 64.5 mCi Tc 99m DTPA aerosol and intravenous injection of 5.2 mCi of Tc 99m MAA, ventilation and perfusion images are acquired post injection in multiple projections. FINDINGS: There is heterogeneous uptake seen in both ventilation and perfusion images with numerous matched def ects seen bilaterally. No sizable mismatch perfusion defects. IMPRESSION: Intermediate probability for pulmonary embolism
--- NOTE | 2020-03-10 14:41 | US ---
EXAMINATION TYPE: US venous doppler duplex LE DATE OF EXAM: 03/10/2020 2:34 PM COMPARISON: NONE CLINICAL HISTORY: suspect DVT. elevated D-Dimer, PE SIDE PERFORMED: bilateral TECHNIQUE: The lower extremity deep venous system is examined utilizing real time linear array sonog sandra with graded compression, doppler sonography and color-flow sonography. VESSELS IMAGED: External Iliac Vein (EIV) Common Femoral Vein Deep Femoral Vein Greater Saphenous Vein * Femoral Vein Popliteal Vein Small Saphenous Vein * Proximal Calf Veins (* superficial vessels) Right Leg: no evidence of DVT Left Leg: no evidence of DVT Grayscale, color doppler, spectral doppler imaging performed of the deep veins of the bilateral lower extremities. There is normal flow, compressibility, vascular waveforms. IMPRESSION: No ultrasound evidence for acute DVT in either lower extremity.
[2020-03-10 16:36] LABS: Hemoglobin A1C 8.8 % (4.0-6.0)
[2020-03-10 18:08] LABS: Hepatitis A Antibody IgM Non-Reactive (Non-Reactive); Hepatitis C IgG Antibody Non-Reactive (Non-Reactive)
[2020-03-10 18:09] LABS: Hepatitis B Core IgM Non-Reactive (Non-Reactive); Hepatitis B Surface Antigen Non-Reactive (Non-Reactive)
--- NOTE | 2020-03-10 21:01 | P.GSCN ---
History of Present Illness Consult date: 03/10/20 Reason for Consult: left hydronephrosis History of present illness: Ms Marques is a 69-year-old female with admitted to the hospital with Weakness and shortness of breath. She has hx of 9 mm left sided ureteral stone. She underwent left sided ureteroscopy on 03/07. She indicates since Saturday she had multiple episodes of feeling dizzy, lightheaded and short of breath. She had CT which showed left sided hydronephrosis, but not stones were visualized. She indicates she has mild flank pain, which has been stable since surgery. Denies any dysuria, hematuria or fever/chills. He creat is 2.55 on presentation, it improved to 1.8 with hydration. Of note her baseline is 0.9. Her Echo is concerning for PE, and there is plan to transfer her to [facility]. Review of Systems - Constitutional Reports weakness, Denies chills, Denies fever - EENT Ears, nose, mouth and throat: Denies dysphagia - Cardiovascular Reports dyspnea on exertion, Reports shortness of breath, Denies chest pain - Respiratory Reports dyspnea, Denies cough - Gastrointestinal Denies abdominal pain, Denies vomiting - Genitourinary Genitourinary: Reports flank pain, Reports kidney stones, Denies dysuria - Integumentary Denies rash, Denies unusual bruising - Neurological Denies headaches, Denies syncope Past Medical History Past Medical History: Diabetes Mellitus, Hypertension Additional Past Medical History / Comment(s): Type 2 diabetic History of Any Multi-Drug Resistant Organisms: None Reported Past Surgical History: Tubal Ligation Past Anesthesia/Blood Transfusion Reactions: No Reported Reaction Past Psychological History: No Psychological Hx Reported Smoking Status: Never smoker Past Alcohol Use History: None Reported Past Drug Use History: None Reported Medications and Allergies Home Medications Medication Instructions Recorded Confirmed Type Acetaminophen Tab [Tylenol] 1,000 mg PO Q6H PRN 02/26/20 03/09/20 History Atorvastatin Calcium [Lipitor] 10 mg PO HS 03/09/20 03/09/20 History Omeprazole 20 mg PO DAILY 03/09/20 03/09/20 History glipiZIDE [Glucotrol] 10 mg PO AC-SUPPER 03/09/20 03/09/20 History glipiZIDE [Glucotrol] 20 mg PO AC-BRKFST 03/09/20 03/09/20 History metFORMIN HCL [Glucophage Xr] 1,500 mg PO W/SUPPER 03/09/20 03/09/20 History sitaGLIPtin [Januvia] 25 mg PO DAILY 03/09/20 03/09/20 History Allergies Allergy/AdvReac Type Severity Reaction Status Date / Time No Known Allergies Allergy Verified 03/09/20 20:03 Surgical - Exam Vital Signs Temp Pulse Resp BP Pulse Ox 97.8 F 87 16 132/74 95 03/09/20 18:32 03/09/20 18:32 03/09/20 18:32 03/09/20 18:32 03/09/20 18:32 - General well developed, well nourished, moderate distress, moderate pain - Eyes PERRL, normal ocular movement - Respiratory other (labored breathing ) - Abdomen Abdomen: tender (left flank ) - Psychiatric oriented to time, oriented to person, oriented to place, speech is normal Results - Labs 03/10/20 12:28 03/10/20 06:50 Abnormal Lab Results - Last 24 Hours (Table) 03/09/20 03/10/20 03/10/20 Range/Units 22:33 06:20 06:50 WBC 13.5 H (3.8-10.6) k/uL Plt Count 96 L (150-450) k/uL Neutrophils # 11.7 H (1.3-7.7) k/uL PT (9.0-12.0) sec INR (<1.2) APTT (22.0-30.0) sec D-Dimer (<0.60) mg/L FEU Sodium (137-145) mmol/L BUN (7-17) mg/dL Creatinine (0.52-1.04) mg/dL Glucose (74-99) mg/dL POC Glucose (mg/dL) 274 H (75-99) mg/dL Hemoglobin A1c (4.0-6.0) % Plasma Lactic Acid Kam 2.1 H* (0.7-2.0) mmol/L Calcium (8.4-10.2) mg/dL AST (14-36) U/L ALT (4-34) U/L Troponin I (0.000-0.034) ng/mL Total Protein (6.3-8.2) g/dL Albumin (3.5-5.0) g/dL 03/10/20 03/10/20 03/10/20 Range/Units 06:50 06:50 06:50 WBC (3.8-10.6) k/uL Plt Count (150-450) k/uL Neutrophils # (1.3-7.7) k/uL PT 12.8 H (9.0-12.0) sec INR 1.3 H (<1.2) APTT 32.3 H (22.0-30.0) sec D-Dimer (<0.60) mg/L FEU Sodium 133 L (137-145) mmol/L BUN 39 H (7-17) mg/dL Creatinine 1.84 H (0.52-1.04) mg/dL Glucose 296 H (74-99) mg/dL POC Glucose (mg/dL) (75-99) mg/dL Hemoglobin A1c 8.8 H (4.0-6.0) % Plasma Lactic Acid Kam (0.7-2.0) mmol/L Calcium 8.3 L (8.4-10.2) mg/dL AST 1258 H (14-36) U/L ALT 1852 H (4-34) U/L Troponin I (0.000-0.034) ng/mL Total Protein 5.7 L (6.3-8.2) g/dL Albumin 3.4 L (3.5-5.0) g/dL 03/10/20 03/10/20 03/10/20 Range/Units 06:50 12:03 12:28 WBC (3.8-10.6) k/uL Plt Count (150-450) k/uL Neutrophils # (1.3-7.7) k/uL PT 12.5 H (9.0-12.0) sec INR 1.2 H (<1.2) APTT 42.2 H (22.0-30.0) sec D-Dimer 9.66 H (<0.60) mg/L FEU Sodium (137-145) mmol/L BUN (7-17) mg/dL Creatinine (0.52-1.04) mg/dL Glucose (74-99) mg/dL POC Glucose (mg/dL) 260 H (75-99) mg/dL Hemoglobin A1c (4.0-6.0) % Plasma Lactic Acid Kam (0.7-2.0) mmol/L Calcium (8.4-10.2) mg/dL AST (14-36) U/L ALT (4-34) U/L Troponin I 0.706 H* (0.000-0.034) ng/mL Total Protein (6.3-8.2) g/dL Albumin (3.5-5.0) g/dL 03/10/20 Range/Units 12:28 WBC 13.6 H (3.8-10.6) k/uL Plt Count 92 L (150-450) k/uL Neutrophils # 12.0 H (1.3-7.7) k/uL PT (9.0-12.0) sec INR (<1.2) APTT (22.0-30.0) sec D-Dimer (<0.60) mg/L FEU Sodium (137-145) mmol/L BUN (7-17) mg/dL Creatinine (0.52-1.04) mg/dL Glucose (74-99) mg/dL POC Glucose (mg/dL) (75-99) mg/dL Hemoglobin A1c (4.0-6.0) % Plasma Lactic Acid Kam (0.7-2.0) mmol/L Calcium (8.4-10.2) mg/dL AST (14-36) U/L ALT (4-34) U/L Troponin I (0.000-0.034) ng/mL Total Protein (6.3-8.2) g/dL Albumin (3.5-5.0) g/dL Diabetes panel 03/10/20 03/10/20 Range/Units 06:50 06:50 Sodium 133 L (137-145) mmol/L Potassium 3.6 (3.5-5.1) mmol/L Chloride 100 (98-107) mmol/L Carbon Dioxide 24 (22-30) mmol/L BUN 39 H (7-17) mg/dL Creatinine 1.84 H (0.52-1.04) mg/dL Glucose 296 H (74-99) mg/dL Hemoglobin A1c 8.8 H (4.0-6.0) % Calcium 8.3 L (8.4-10.2) mg/dL AST 1258 H (14-36) U/L ALT 1852 H (4-34) U/L Alkaline Phosphatase 122 (38-126) U/L Total Protein 5.7 L (6.3-8.2) g/dL Albumin 3.4 L (3.5-5.0) g/dL Calcium panel 03/10/20 Range/Units 06:50 Calcium 8.3 L (8.4-10.2) mg/dL Albumin 3.4 L (3.5-5.0) g/dL Pituitary panel 03/10/20 Range/Units 06:50 Sodium 133 L (137-145) mmol/L Potassium 3.6 (3.5-5.1) mmol/L Chloride 100 (98-107) mmol/L Carbon Dioxide 24 (22-30) mmol/L BUN 39 H (7-17) mg/dL Creatinine 1.84 H (0.52-1.04) mg/dL Glucose 296 H (74-99) mg/dL Calcium 8.3 L (8.4-10.2) mg/dL Adrenal panel 03/10/20 Range/Units 06:50 Sodium 133 L (137-145) mmol/L Potassium 3.6 (3.5-5.1) mmol/L Chloride 100 (98-107) mmol/L Carbon Dioxide 24 (22-30) mmol/L BUN 39 H (7-17) mg/dL Creatinine 1.84 H (0.52-1.04) mg/dL Glucose 296 H (74-99) mg/dL Calcium 8.3 L (8.4-10.2) mg/dL Total Bilirubin 0.9 (0.2-1.3) mg/dL AST 1258 H (14-36) U/L ALT 1852 H (4-34) U/L Alkaline Phosphatase 122 (38-126) U/L Total Protein 5.7 L (6.3-8.2) g/dL Albumin 3.4 L (3.5-5.0) g/dL - Imaging CT scan - abdomen: image reviewed (left hydro) Assessment and Plan Assessment: 69 yo female S/P left sided Ureteroscopy on 03/[address] Lua for 9mm ureteral stone. Presents back with weakness and SOB, her Echo concerning for PE. CT on presentation showed left hydro, Creat elevated to 2.55, but trended down to 1.8 with hydration. She is complaing of mild flank pain. Primary planing on transfering patient given concern for PE. Plan: Given mild symptoms, concern for PE and improvement of creat with hydration will continue to observe hydro. Will consider sten placement if pain worsen, or creat trends up.
--- NOTE | 2020-03-11 09:03 | CDI ---
Documentation Clarification Form Date: 03/11/2020 07:48:00 AM From: Teri Nicole Phone: To: Teri Nicole If you have a question about this query, please contact [facility] at [phone] between 8am and 5pm. Admit Date: 03/09/2020 09:51:00 PM Patient Name: Navid Forrester Visit Number: [id number] Discharge Date: 03/10/2020 02:56:00 PM ATTENTION: The Clinical Documentation Specialists (CDI) and [facility] Coding Staff appreciate your assistance in clarifying documentation. Please respond to the clarification below the line at the bottom and electronically sign. The CDI & [facility] Coding staff will review the response and follow-up if needed. Please note: Queries are made part of the Legal Health Record. If you have any questions, please contact the author of this message via ITS. Dr. Tung Carlin CHF is documented in the H and P. BNP is 10,400 suspect possibly CHF with possible NSTEMI. Please clarify type and acuity of CHF. History/Risk Factors: HTN VS/Pulse OX: 95 down to 91 BNP: 10,400 Echocardiogram Results: EF 60-65% Treatment: I and O's, Lasix In your professional opinion, can you please clarify the acuity and type of CHF if known? Systolic Heart Failure: Acute Chronic Acute on Chronic Diastolic Heart Failure: Acute Chronic Acute on Chronic Systolic & Diastolic Heart Failure: Acute Chronic Acute on Chronic Heart Failure Unable to Determine Other, please specify MTDD
--- NOTE | 2020-03-21 09:20 | PN ---
PROGRESS NOTE ADDENDUM: Acute on chronic diastolic heart failure. MMODL / IJN: [id number] /
--- NOTE | 2020-04-24 23:51 | DS ---
DISCHARGE SUMMARY DATE OF ADMISSION: 03/09/2020. DISCHARGE DATE: 03/10/2020 MEDICATIONS: Tylenol 5000 mg q.6 hours p.r.n., Glucophage XR 150 mg daily, Januvia 25 daily, Glucotrol 20 mg daily, omeprazole 20 mg daily, atorvastatin 10 mg daily. CONDITION: Stable. PROGNOSIS: Guarded. Ambulate as tolerated. The patient with acute on chronic diastolic heart failure on admission. She did have a pulmonary perfusion study while in the hospital that was intermediate probability for pulmonary embolism. Cardiology saw her and examined her. She was treated for left hydronephrosis. Surgeons saw her. She had prerenal insufficiency. Echo was concerning for PE and there was plan to transfer to [facility] which occurred. She will follow up as an outpatient once cleared from [facility]. MMODL / IJN: [id number] /
== END 2020-03-10 14:56 | disposition short-term general hospital (02) | DRG 280 ==
LOC: EC 18:30 → 3SCARD 21:51
PROVIDERS: ADMIT Family Medicine; ATTEND Family Medicine
DX: I21.4 Non-ST elevation (NSTEMI) myocardial infarction (principal); N17.0 Acute kidney failure with tubular necrosis; I50.33 Acute on chronic diastolic (congestive) heart failure; E87.2 Acidosis; N39.0 Urinary tract infection, site not specified; N13.30 Unspecified hydronephrosis; E86.0 Dehydration; E11.65 Type 2 diabetes mellitus with hyperglycemia; D72.829 Elevated white blood cell count, unspecified; E78.5 Hyperlipidemia, unspecified; I11.0 Hypertensive heart disease with heart failure; R11.2 Nausea with vomiting, unspecified; Z87.442 Personal history of urinary calculi; Z79.899 Other long term (current) drug therapy; Z79.84 Long term (current) use of oral hypoglycemic drugs; W18.00XA Striking against unspecified object with subsequent fall, initial encounter; R55 Syncope and collapse; Z20.828 Contact with and (suspected) exposure to other viral communicable diseases; Z98.51 Tubal ligation status; I49.1 Atrial premature depolarization
CPT/HCPCS: 36415; 70450; 71046; 71250; 72125; 74176; 76705; 78582; 80053; 80074; 80329; 81001; 83036; 83605; 83735; 83880; 84484; 85025; 85379; 85610; 85730; 87635; 93005; 93306; 93970; 96361; 96374; 96375; 99285

== ENCOUNTER → 2020-05-03 | Outpatient (CLI) | payer MEDICARE ==
--- NOTE | 2020-05-03 15:42 | US ---
EXAMINATION TYPE: US kidneys/renal and bladder DATE OF EXAM: 05/03/2020 COMPARISON: NONE CLINICAL HISTORY: N17.9 Acute kidney injury. abnormal labs. Hx left kidney stone removal with surgic al removal EXAM MEASUREMENTS: Right Kidney: 10.3 x 5.0 x 4.8 cm Left Kidney: 11.0 x 5.3 x 5.1 cm Right Kidney: No hydronephrosis or masses seen Left Kidney: Possible dilated renal collecting system Bladder: distended, anechoic Bilateral Jets seen IMPRESSION: 1. There may be some minimal prominence of the renal collecting system on the left. Hydronephrosis is not evident.
== END | disposition home or self-care (01) ==
LOC: RADUSWWP 15:16
PROVIDERS: ATTEND Internal Medicine Nephrology
DX: N17.9 Acute kidney failure, unspecified (principal)
CPT/HCPCS: 76770

== ENCOUNTER 2021-08-09 06:04 | Day surgery (SDC) | payer MEDICARE ==
[2021-08-08 08:25] VITALS: BMI 30.7
[~2021-08-09 06:04] MED LIST: LACTATED RINGERS 1,000 ML IV SCH; LIDOCAINE 1% (10MG/ML) FOR IV START INTRADERMA PRN; TETRACAINE 0.5% OPHTH (PF) DROPS 4 ML BTL OP PRN
[2021-08-09] MEDS: PHENYLEPHRINE 2.5% OPHTH DRP 2ML OP PRN ×5 (06:30→06:55)
[2021-08-09] MEDS: CYCLOPENTOLATE 1% OPHTH SOLN 2 ML BTL OP PRN ×3 (06:34→06:50)
[2021-08-09 06:45] LABS: Glucose,Whole Blood 175 mg/dL (75-99)
[2021-08-09 06:46] VITALS: RESP 16; TEMP 98.4
[2021-08-09] MEDS ORDERED: MIDAZOLAM 2 MG/2 ML VIAL ONE (07:25)
[2021-08-09] MEDS ORDERED: fentaNYL (PF) 50 MCG/ML 2 ML AMP ONE (07:25)
[2021-08-09] MEDS ORDERED: HYALURONATE SODIUM INTRAOCULAR 1 EACH SYRINGE (12MG/ML) INTRAOCULA ONE (07:43)
[2021-08-09] MEDS ORDERED: BALANCED SALT IRRIG SOLN COMB2 15 ML IRRIG.SOLN IRRIGATION ONE (07:43)
[2021-08-09] MEDS: MOXIFLOXACIN HCL 0.5% DROPS 3 ML BTL OP PRN ×2 (07:44→07:53)
[2021-08-09] MEDS: TIMOLOL 0.5% OPHTH DROPS 5 ML BTL OP PRN ×2 (07:44→07:53)
[2021-08-09] MEDS ORDERED: LIDOCAINE 1% (PF) 10MG/ML VIAL MISCELLANE ONE (07:44)
[2021-08-09] MEDS ORDERED: EPINEPHrine (PF) 0.3 ML in BALANCED SALT IRRIG SOLN COMB2 500 ML IRRIGATION ONE (07:46)
--- NOTE | 2021-08-09 07:59 | P.OP ---
Date of Procedure: 08/09/21 Preoperative Diagnosis: NS & CS Postoperative Diagnosis: same Procedure(s) Performed: PIOL, OS Implants: MX60E 17.00 Anesthesia: MAC Surgeon: Bryce Anderson Pathology: none sent Condition: stable Disposition: same day Indications for Procedure: blurry vision Operative Findings: no complications
[2021-08-09 08:53] VITALS: BP 148/79; PULSE 85
--- NOTE | 2021-08-09 15:17 | OP ---
OPERATIVE REPORT DATE OF SURGERY: August 09, 2021. PROCEDURE PERFORMED: Phacoemulsification of cataract and intraocular lens implant of the left eye. SURGEON: Dr. Bryce Anderson. 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 POSTOPERATIVE DIAGNOSES: Nuclear sclerosis. Cortical sclerosis. OPERATION: Clear cornea phacoemulsification of cataract left/OS eye. ESTIMATED BLOOD LOSS: Zero. SPECIMEN TAKEN: None. NARRATIVE: After obtaining the appropriate consent, the patient was brought to the Operating Room where the patient was placed under cardiac monitoring and prepped and draped in the usual sterile manner. At the 5 o'clock position a 15 degree super sharp blade was used to create a paracentesis followed by instillation of 1% Xylocaine MPF 50:50 mix with BSS into the anterior chamber. This was followed by Amvisc to stabilize the anterior chamber. At the 3 o'clock position a self-sealing corneal flap incision was created using 2.8 mm elvia keratome. A cystotome was used to initiate a continuous tear capsulorrhexis which was completed with the Utrata forceps. A Binkhorst cannula was used to hydrodissect the lens nucleus followed by hydrodelineation. Phacoemulsification of the lens was performed utilizing phaco-chop in 27.65 seconds at 32.5% power. The remaining cortical material was removed using the irrigation aspiration mode followed by additional 1% Xylocaine MPF into the anterior chamber followed by viscoelastic to stabilize the capsular bag. A [employer] MX 60E 17.0 diopter posterior chamber lens was placed into the capsular bag without difficulty. The remaining viscoelastic material was removed from the anterior chamber with the irrigation/aspiration. Balanced salt solution was used to normalize the intraocular pressure. The incision was checked for watertight integrity. The patient then received two drops of 0.5% timolol followed by two drops Vigamox, was lightly patched and shielded in the usual manner. There were no complications from the procedure. The patient tolerated the procedure well and was returned to recovery in good condition. MMODL / IJN: [id number] /
== END 2021-08-09 08:55 | disposition home or self-care (01) ==
LOC: OR 06:04
PROVIDERS: ATTEND Ophthalmology
DX: H25.13 Age-related nuclear cataract, bilateral (principal); E11.36 Type 2 diabetes mellitus with diabetic cataract; E11.3313 Type 2 diabetes mellitus with moderate nonproliferative diabetic retinopathy with macular edema, bilateral; H52.4 Presbyopia; H52.223 Regular astigmatism, bilateral; I10 Essential (primary) hypertension; H40.9 Unspecified glaucoma; E78.00 Pure hypercholesterolemia, unspecified; Z83.511 Family history of glaucoma; Z82.61 Family history of arthritis; Z83.3 Family history of diabetes mellitus; Z82.49 Family history of ischemic heart disease and other diseases of the circulatory system; Z83.49 Family history of other endocrine, nutritional and metabolic diseases; Z83.518 Family history of other specified eye disorder; Z79.84 Long term (current) use of oral hypoglycemic drugs; Z79.82 Long term (current) use of aspirin; Z79.899 Other long term (current) drug therapy
CPT/HCPCS: 66984; C1780; J2250; J0171; J3010; J2001